=== PATIENT | female | born 1970 | race Asian ===

== ENCOUNTER 2021-12-26 05:36 | Outpatient (CLI) | payer OTHER ==
[~2021-12-26] VITALS: Ht 154 cm; Wt 64.5 kg
[2021-12-27] MEDS ORDERED: MEDR10TA9 PO (13:06)
== END 2021-12-27 13:30 | disposition home or self-care (01) ==
LOC: PREOP 05:36
PROVIDERS: ATTEND Obstetrics & Gynecology
DX: Z01.818 Encounter for other preprocedural examination (principal)

== ENCOUNTER 2022-01-01 08:35 | Day surgery (SDC) | payer OTHER ==
[2022-01-01] VITALS (10 sets, daily range): BP systolic 101–132; BP diastolic 59–72
[~2022-01-01] VITALS: Ht 154 cm; Wt 64.5 kg
[~2022-01-01 08:35] MED LIST: MEDR10TA9 PO
[2022-01-01] MEDS: LACTATED RINGERS 1,000 ML IV PRN ×2 (09:30→10:19)
[2022-01-01] MEDS ORDERED: ceFAZolin 2 GM IV Premixed 50 ML IV ONE (09:45)
[2022-01-01] MEDS ORDERED: metroNIDAZOLE 500MG/100ML IVPB 100 ML IV ONE (09:45)
[2022-01-01] MEDS ORDERED: BUPIVACAINE 0.25% 30 ML (SENSORCAINE) VIAL ONE (10:37)
--- NOTE | 2022-01-01 10:43 | Discharge Inst-Women's Service ---
Discharge Inst-Women's Serv Depart Medication/Instructions New, Converted or Re-Newed RX: Transmitted to Pharmacy Problems Reviewed?: Yes Consults/Follow Up Additional Follow Up: Yes Orders/Referrals Dr. Betancourt in 7-10 days and in 8 weeks Activity Activity: Activity as Tolerated Driving Instructions: No Driving for 1 Week NO SMOKING: NO SMOKING Nothing Inside Vagina: No Douching, No [place], No Tampons Diet Discharge Diet: No Restrictions Symptoms to Report to : Bleeding Excessive, Pain Increased, Fever Over 101 Degrees F, Vaginal Bleeding Increase, Questions/Concerns For Any Problems or Questions: Contact Your Physician Skin/Wound Care Infection Signs and Symptoms: Increased Redness, Foul Odor of Wound, Increased Drainage, Skin Itchy or Has a Rash, Increased Swelling, Temperature Above 101 F Operative Area Clean and Dry: Keep Incision Clean/Dry Stitches/Mireya/Dermabond: Dermabond, Care of Stitches Bathing Instructions: MARGARITA Cedeño DO Jan 01, 2022 10:43
[2022-01-01] MEDS ORDERED: HYDR-34 PO (10:44)
[2022-01-01] MEDS ORDERED: IBUP-844 PO (10:44)
[2022-01-01] MEDS ORDERED: SIME80TA16 PO (10:44)
[2022-01-01] MEDS ORDERED: DOCU100C37 PO (10:44)
[2022-01-01] MEDS ORDERED: ZOLPIDEM 5 MG (AMBIEN) TAB PO PRN (10:45)
[2022-01-01] MEDS ORDERED: ONDANSETRON 4 MG/2 ML (SDV) Z0FRAN IV PRN (10:45)
[2022-01-01] MEDS ORDERED: SIMETHICONE 80 MG (MYLICON) CHEW PO PRN (10:45)
[2022-01-01] MEDS ORDERED: ANTACID SUSP 30 ML UDC (MYLANTA) PO PRN (10:45)
[2022-01-01] MEDS ORDERED: DOCUSATE SODIUM 100 MG (COLACE) CAP PO PRN (10:45)
[2022-01-01] MEDS ORDERED: fentaNYL INJ 100 MCG/2 ML AMP ONE (10:48)
[2022-01-01] MEDS ORDERED: GLYCOPYRROLATE 0.2 MG/ML (ROBINUL) 2 ML VIAL ONE (10:48)
[2022-01-01] MEDS ORDERED: proPOfol 200 MG/20 ML (DIPRIVAN) VIAL IV ONE (10:48)
[2022-01-01] MEDS ORDERED: LIDOCAINE PF 2% 5 ML (XYLOCAINE) VIAL ONE (10:48)
[2022-01-01] MEDS ORDERED: MIDAZOLAM 2 MG/2 ML (VERSED) VIAL ONE (10:48)
[2022-01-01] MEDS ORDERED: ONDANSETRON 4 MG/2 ML (SDV) Z0FRAN ONE (10:48)
[2022-01-01 10:50] LABS: BASOPHILS # (AUTO) 0.1 10^3/uL (0.0-0.1); BASOPHILS % (AUTO) 1 % (0-10); EOSINOPHILS # (AUTO) 0.1 10^3/uL (0.0-0.3); EOSINOPHILS % (AUTO) 1 % (0-10); HEMATOCRIT 37 % (35-52); HEMOGLOBIN 10.7 g/dL (11.5-16.0); LYMPHOCYTES # (AUTO) 1.6 10^3/uL (1.0-4.0); LYMPHOCYTES % (AUTO) 21 % (12-44); MEAN CORPUSCULAR HEMOGLOBIN 21 pg (25-34); MEAN CORPUSCULAR HGB CONC 29 g/dL (32-36); MEAN CORPUSCULAR VOLUME 74 fL (80-99); MEAN PLATELET VOLUME 10.7 fL (9.0-12.2); MONOCYTES # (AUTO) 0.3 10^3/uL (0.0-1.0); MONOCYTES % (AUTO) 4 % (0-12); NEUTROPHILS # (AUTO) 5.5 10^3/uL (1.8-7.8); NEUTROPHILS % (AUTO) 73 % (42-75); PLATELET COUNT 353 10^3/uL (130-400); WHITE BLOOD COUNT 7.5 10^3/uL (4.3-11.0)
[2022-01-01] MEDS ORDERED: ROCURONIUM 50 MG/5 ML (ZEMURON) VIAL IV ONE (12:21)
[2022-01-01] MEDS ORDERED: NEOSTIGMINE (BLOXIVERZ ) 1 MG/1ML 10 ML VIAL ONE (12:21)
[2022-01-01] MEDS ORDERED: HYDROmorphone 2 MG/ML VIAL (DILAUDID) ONE (12:24)
[2022-01-01] MEDS ORDERED: SEVOFLURANE (ULTANE) 15 ML INHAL SOLN ONE (12:32)
[2022-01-01] MEDS ORDERED: KETOROLAC 30 MG/ML VIAL ONE (12:52)
[2022-01-01] MEDS: KETOROLAC 30 MG/ML VIAL IVP PRN ×2 (12:57→19:55)
--- NOTE | 2022-01-01 13:09 | Anesthesia-General Post-Op ---
General Patient Condition Mental Status/LOC: Same as Preop Cardiovascular: Satisfactory Nausea/Vomiting: Absent Respiratory: Satisfactory Pain: Controlled Complications: Absent Post Op Complications Complications None Follow Up Care/Instructions Patient Instructions None needed. Anesthesia/Patient Condition Patient Condition Patient is resting comfortably in PACU and doing well, no complaints, stable vital signs, no apparent adverse anesthesia problems. No complications reported per nursing. LIBRADO MIKE DO Jan 01, 2022 13:09
[2022-01-01] MEDS ORDERED: HYDROmorphone 2 MG/ML VIAL (DILAUDID) IV ONE (13:15)
[2022-01-01] MEDS ORDERED: ONDANSETRON 4 MG/2 ML (SDV) Z0FRAN IVP PRN (13:15)
[2022-01-01] MEDS ORDERED: morphine INJ 10 MG/ML 1ML (SYR OR VIAL) IVP ONE (13:15)
[2022-01-01] MEDS: LACTATED RINGERS 1,000 ML IV SCH ×2 (14:10→18:45)
[2022-01-01] MEDS ORDERED: CEPACOL SORE THROAT-COUGH LOZENGE MM PRN (14:30)
[2022-01-01] MEDS: HYDROcodone/APAP 7.5 MG/325 MG (LORTAB, LORCET PLUS) TABLET PO PRN ×2 (16:32→20:08)
--- NOTE | 2022-01-02 00:43 | OPERATIVE REPORT ---
DATE OF SERVICE: PREOPERATIVE DIAGNOSES: 1. A 51-year-old female with 8 cm uterine fibroid. 2. Pelvic pain and pressure. 3. Menorrhagia. POSTOPERATIVE DIAGNOSES: 1. A 51-year-old female with 8 cm uterine fibroid. 2. Pelvic pain and pressure. 3. Menorrhagia. PROCEDURE: Robotic-assisted total laparoscopic hysterectomy with bilateral salpingo-oophorectomy weighing 505 grams. SURGEON: Jack Betancourt DO MANAGER ENVIRONMENTAL: Cheri Newell DNP, who was necessary for manipulation and retraction throughout the procedure. ANESTHESIA: General endotracheal. ESTIMATED BLOOD LOSS: 50 mL. URINE OUTPUT: 400 mL clear at the end of the procedure. FLUIDS: 1800 mL lactated Ringer's solution. FINDINGS: A very large bulky uterus, grossly normal appearing bilateral ovaries and fallopian tubes, grossly normal appearing external female genitalia. SPECIMEN SENT: Uterus, bilateral fallopian tubes and ovaries. INDICATIONS FOR PROCEDURE: This 51-year-old female is a patient who had sought care in my office after an episode of heavy bleeding that were subsided by Provera. She had an endometrial biopsy performed in the office, which revealed no signs of malignancy or infection that in combination with an 8 cm fibroid on ultrasound and pelvic pain and pressure was enough indication to proceed with definitive measures for this. Risks of the procedure were discussed with the patient in detail with her present including the risk of bleeding, infection, damage to surrounding structures including, but not limited to bowel, bladder, ureter, kidneys, possible need for reoperation, postoperative complications that may occur, risk from anesthesia, recovery timeframe and even . After everything was discussed with the patient in detail, consent was obtained, the patient was taken to the operating room. OPERATIVE REPORT IN DETAIL: Once in the operating room, general anesthesia was found to be adequate. She was placed in dorsal lithotomy position, prepped and draped in normal sterile fashion where a timeout was performed. Negro catheter was placed using sterile technique. A weighted speculum inserted to the patient's vagina. Right angle retractor was used to visualize the cervix, which was grasped 12 o'clock position using a long Allis clamp and 0 Vicryl suture was then placed anterior lip of the cervix using my retraction point. I then gently sound the uterine cavity, depth was found to be approximately 9 cm. I placed an 8 cm tip on the Faye and a 4 cm colpotomy ring, advanced the tip into the uterus deploying the balloon and colpotomy ring around the vaginal fornix. Once these were in place, I am able to appreciate somewhat by manual manipulation; however, due to the size of the uterus, it was difficult to palpate. I then performed a change of gloves obtained my attention to the abdomen, where at the midclavicular line on the left subcostally I introduced the Veress needle until intraperitoneal placement was confirmed using saline drop test. An opening pressure 4 mmHg was noted. I proceeded to max pressure of 15 mmHg, at which point, I made a supraumbilical incision after infiltrating the skin using 0.25% Marcaine. This is an 8 mm incision with a knife. A blunt laparoscopic da Aubrie camera trocar was placed in the incision, intraperitoneal Jake placement was confirmed directly using the da Aubrie laparoscope. There was no evidence of damage upon my entry site. There was no evidence of damage of the Veress entry site and the Veress needle was removed at that point. I then had the patient placed in steep Trendelenburg, I am able to visualize all my pelvic anatomy as defined in my findings above. I placed two lateral trocars, both 8 mm trocars approximately 8 cm lateral from my infraumbilical trocar. The skin was infiltrated using 0.25% Marcaine and incisions were made using a knife. After both these trocars were in place, I bring in the da Aubrie robot and docked in appropriate fashion placing the vessel sealer in the left hand and monopolar alyx in the right hand, I performed the following dissection bilaterally starting at the infundibulopelvic ligament, I sealed and transected using the vessel sealer. I then grasped the round ligament, which I sealed and transected using the vessel sealer through this, after due to size of fibroid uterus that separates out the anterior and posterior leaflets of the broad ligament automatically, anterior leaflet of the broad ligament was taken down to where I can find the anterior vaginal cuff on the Faye uterine manipulator, similarly on the posterior fascia I do the same. This allows me to skeletonize the uterine vessels laterally as well as track the ureters and their path away from my dissection planes. I then sealed and transect bilateral uterine vessels. I then created a colpotomy at 12 o'clock position using monopolar alyx and took this circumferentially around the vaginal fornix amputating the cervix away from the vagina. I then removed the entire specimen that had to be bivalved, but it is all removed intact through the vagina. There is an anterior vaginal wall laceration appreciated postoperatively; however, not identified at the time of removal. I then closed the vaginal cuff using 2-0 V-Loc in a running fashion, after which there was no active bleeding noted from any of my peritoneal dissection planes. I then undocked the da Aubrie robot and proceeded with remainder of the case laparoscopically. I copiously irrigated the pelvis using normal saline. Once again there was no active bleeding noted from any of my dissection planes, I placed Surgiflo hemostatic agent over all my planes of dissection. I remove the lateral trochars under direct visualization. The supraumbilical trochar is left in place to release the remainder of insuflation and introduce 0.25 marcaine into the peritoneal cavity for postoperative pain management. This trochar is then removed. Negro is left in place. Skin is reapproximated using 3-0 monocryl in interupted subcuticular fashion. Sealed with skin affix, and band aids placed over the incisions. Lap and sponge count is correct after the procedure is complete, instrument count is correct as well. 2 gm Ancef and 500 mg Flagyl are given preoperatively for infection prophylaxis. Job ID: [id number] DocumentID: [id number] Dictated Date: 01/01/2022 14:40:43 Appliance Repair Technician Date: 01/02/2022 00:42:43 Dictated By: DO OMAR BLANK
[2022-01-06] MEDS ORDERED: IBUPROFEN 600 MG (MOTRIN) TAB PO SCH (06:00)
== END 2022-01-01 20:40 | disposition home or self-care (01) ==
LOC: SDC 08:35 → WS 13:51 → SDC 20:40
PROVIDERS: ATTEND Obstetrics & Gynecology
DX: D25.1 Intramural leiomyoma of uterus (principal); D25.0 Submucous leiomyoma of uterus
CPT/HCPCS: 36415; 84703; 85025; 86850; 86900; 86901; 94010